=== PATIENT | male | born 1955 | race Caucasian/White ===

== ENCOUNTER 2016-09-07 12:14 | Outpatient (CLI) | payer MEDICARE, BC ==
[~2016-09-07] VITALS: Ht 195.6 cm; Wt 95.4 kg
[2016-09-07 12:23] VITALS: BP 117/62; PULSE 127; TEMP 98.7
[2016-09-07] MEDS ORDERED: GLUCOPHAGE500 MG/TAB PO (12:25)
[2016-09-07] MEDS ORDERED: ATIVAN 0.50.5 MG/TAB PO (12:26)
[2016-09-07] MEDS ORDERED: DIABETA 5MG5 MG/TAB PO (12:26)
[2016-09-07] MEDS ORDERED: ZESTRIL 20MG TA20 MG PO (12:27)
[2016-09-07] MEDS ORDERED: NORVASC 10MG10 MG PO (12:27)
[2016-09-07] MEDS ORDERED: LIPITOR20 MG PO (12:28)
[2016-09-07] MEDS ORDERED: CELEXA 20MG20 MG/TAB PO (12:28)
[2016-09-07 14:52] VITALS: BP 133/62; PULSE 106; TEMP 98.4
== END 2016-09-07 14:59 | disposition home or self-care (01) ==
LOC: EUO 12:14
DX: K52.0 Gastroenteritis and colitis due to radiation (principal)
CPT/HCPCS: J7120

== ENCOUNTER → 2021-02-27 | Outpatient (CLI) | payer MEDICARE, BC ==
[~2021-02-27] MED LIST: ATIVAN 0.50.5 MG/TAB PO; CELEXA 20MG20 MG/TAB PO; DIABETA 5MG5 MG/TAB PO; GLUCOPHAGE500 MG/TAB PO; LIPITOR20 MG PO; NORVASC 10MG10 MG PO; ZESTRIL 20MG TA20 MG PO
== END ==
LOC: DIA.ED 07:46
DX: E11.9 Type 2 diabetes mellitus without complications (principal); I10 Essential (primary) hypertension; E78.5 Hyperlipidemia, unspecified
CPT/HCPCS: G0108

== ENCOUNTER → 2021-04-17 | Outpatient (CLI) | payer MEDICARE, BC | LOC: DIA.ED 14:03 | DX: E11.65 Type 2 diabetes mellitus with hyperglycemia (principal); Z79.84 Long term (current) use of oral hypoglycemic drugs; I10 Essential (primary) hypertension; E78.5 Hyperlipidemia, unspecified ==

== ENCOUNTER → 2021-06-14 | Outpatient (CLI) | payer MEDICARE, BC | LOC: DIA.ED 09:43 | DX: E11.65 Type 2 diabetes mellitus with hyperglycemia (principal); Z79.84 Long term (current) use of oral hypoglycemic drugs; E78.5 Hyperlipidemia, unspecified; I10 Essential (primary) hypertension ==